=== PATIENT | male | born 1975 | race American Indian/Alaskan Native ===

== ENCOUNTER 2017-05-29 00:47 | Emergency (ER) | payer SELFPAY ==
[2017-05-29 02:15] VITALS: TEMP 97.9
[2017-05-29 03:15] VITALS: BP 131/71; PULSE 52; RESP 18; O2SAT 100
--- NOTE | 2017-05-29 03:45 | ED PDOC ---
HPI: General Adult Time Seen by Provider: 05/29/17 02:20 Chief Complaint (Nursing): Back Pain History Per: Patient Additional Complaint(s): Pt. states for the past 4 days he's had atraumatic non-radiating lower back pain. Reports pain began when he woke up in the morning. Describes pain as knot in his back. States pain improves when he bends forward but worsens when he keeps still for a long period of time. Denies trauma, numbness, tingling, incontinence, dysuria, hematuria, N/V/D, abdominal pain. Past Medical History Reviewed: Historical Data, Nursing Documentation, Vital Signs Vital Signs: Last Vital Signs Temp 97.9 F 05/29/17 02:12 Pulse 52 L 05/29/17 03:14 Resp 18 05/29/17 03:14 BP 131/71 05/29/17 03:14 Pulse Ox 100 05/29/17 03:14 - Family History Family History: States: No Known Family Hx - Immunization History Hx Tetanus Toxoid Vaccination: No Hx Influenza Vaccination: No Hx Pneumococcal Vaccination: No - Home Medications Home Medications: Ambulatory Orders Medication Instructions Recorded Albuterol HFA [Ventolin HFA 90 2 puff IH [id number] #0 puff 06/07/15 mcg/actuation (8 g)] Ondansetron ODT [Zofran ODT] 1 odt PO BID PRN #6 odt 06/07/15 Meloxicam [Mobic] 7.5 mg PO DAILY PRN #30 tab 05/29/17 Methocarbamol [Robaxin] 500 mg PO Q8 PRN #15 tablet 05/29/17 - Allergies Allergies/Adverse Reactions: Allergies Allergy/AdvReac Type Severity Reaction Status Date / Time No Known Allergies Allergy Verified 06/07/15 02:50 Review of Systems ROS Statement: Except As Marked, All Systems Reviewed And Found Negative Musculoskeletal: Positive for: Back Pain Physical Exam - Physical Exam Appears: Positive for: Well, Non-toxic, No Acute Distress Skin: Positive for: Normal Color, Warm. Negative for: Rash Eye Exam: Positive for: Normal appearance Respiratory: Positive for: CNT, Normal Breath Sounds Gastrointestinal/Abdominal: Positive for: Normal Exam, Soft. Negative for: Tenderness Back: Positive for: Normal Inspection, Muscle Spasm (b/l paralumbar muscle spasm ). Negative for: L CVA Tenderness, R CVA Tenderness, Vertebral Tenderness Extremity: Positive for: Normal ROM Neurologic/Psych: Positive for: Alert, Oriented, Gait (steady unassisted). Negative for: Aphasia, Facial Droop - ECG O2 Sat by Pulse Oximetry: 100 - Progress ED Course And Treament: Toradol 30mg IM, flexeril 10mg PO ordered. Disposition - Clinical Impression Clinical Impression: Low back pain - Patient ED Disposition Is Patient to be Admitted: No - Disposition Disposition: Routine/Home Disposition Time: 03:00 Condition: IMPROVED Prescriptions: Meloxicam [Mobic] 7.5 mg PO DAILY PRN #30 tab PRN Reason: Pain, Mild (1-3) Methocarbamol [Robaxin] 500 mg PO Q8 PRN #15 tablet PRN Reason: Muscle Spasm Instructions: Low Back Pain (DC) Print Language: OCCITAN
== END 2017-05-29 04:16 | disposition home or self-care (01) ==
LOC: H.ER 00:47
DX: M54.5 Low back pain (principal)
CPT/HCPCS: 96372; 99282; J1885